=== PATIENT | male | born 1985 | race Caucasian/White ===

== ENCOUNTER 2017-02-15 09:45 | Emergency (ER) | payer OTHER | END 2017-02-15 11:25 | disposition home or self-care (01) | LOC: ER 09:45 | DX: J20.9 Acute bronchitis, unspecified (principal); R06.02 Shortness of breath; F17.220 Nicotine dependence, chewing tobacco, uncomplicated; F99 Mental disorder, not otherwise specified; Z79.899 Other long term (current) drug therapy | CPT/HCPCS: 99282 ==